=== PATIENT | male | born 1930 | race Caucasian/White ===

== ENCOUNTER → 2021-12-10 | Outpatient (CLI) | payer MEDICARE, OTHER ==
[2021-12-10 13:51] LABS: Partial Thromboplastin Time 26.8 sec (22.0-30.0); Prothrombin Time 10.7 sec (9.0-12.0)
[2021-12-10 18:26] LABS: HCT 39.7 % (39.6-50.0); HGB 13.1 g/dL (13.0-17.0); MCH 32.6 pg (27.0-32.0); MCV 98.8 fL (80.0-97.0); Mean Platelet Volume 10.7 fL (9.5-12.2); NRBC Per 100 WBC 0 /100 WBCS (0.0-0.0); Platelet Count 179 X 10*3/uL (140-440); RBC 4.02 X 10*6/uL (4.40-5.60); RDW 13.2 % (11.5-14.5); WBC 4.63 X 10*3/uL (4.50-10.00)
[2021-12-10 18:41] LABS: African American GFR (CKD) 95.7 (60.0-200.0); Albumin/Globulin Ratio 1.73 (1.60-3.17); Anion Gap 8.3 mmol/L (10.00-18.00); BUN/Creat Ratio 17.01 Ratio (12.00-20.00); Blood Urea Nitrogen 12.3 mg/dL (9.0-27.0); Calcium 9.5 mg/dL (8.7-10.3); Carbon Dioxide 27.4 mmol/L (20.0-27.5); Globulin 2.3 g/dL (1.6-3.3); Non-African American GFR(CKD) 82.6 (60.0-200.0); Potassium 4.4 mmol/L (3.5-5.5); Total Bilirubin 0.4 mg/dL (0.30-1.20); Total Protein 6.4 g/dL (6.2-8.2)
[2021-12-10 21:06] LABS: Appearance,Urine Clear (Clear); Bilirubin,Urine Negative (Negative); Blood,Urine Negative (Negative); Color,Urine Yellow (Yellow); Ketones,Urine Negative (Negative); Nitrite,Urine Negative (Negative); PH, Urine 7.5 (5.0-8.0); Specific Gravity,Urine 1.009 (1.001-1.030)
== END | disposition home or self-care (01) ==
LOC: LABPAT 11:47
PROVIDERS: ATTEND Orthopaedic Surgery
DX: Z01.812 Encounter for preprocedural laboratory examination (principal)
CPT/HCPCS: 80053; 81003; 85027; 85610; 85730; 87070

== ENCOUNTER 2021-12-23 05:59 | Day surgery (SDC) | payer MEDICARE ==
[2021-12-18 11:00] VITALS: BMI 24.9
[~2021-12-23 05:59] MED LIST: ACETAMINOPHEN TAB 500 MG TAB PO PRN; DEXAMETHASONE SOD PHOSPHATE 4 MG/ML 1 ML VIAL IV ONE; GABAPENTIN 300 MG CAP PO PRN; MELOXICAM 7.5 MG TAB PO PRN; MIDAZOLAM 2 MG/2 ML VIAL IV PRN; ONDANSETRON 4 MG/2 ML VIAL IVP ONE; TRANEXAMIC ACID IN NACL,ISO-OS 1,000 MG in SALINE 1 100ML.BAG IVPB PRN
[2021-12-23] MEDS: LACTATED RINGERS 1,000 ML IV SCH (06:08)
[2021-12-23] MEDS ORDERED: fentaNYL (PF) 50 MCG/ML 2 ML AMP ONE (07:20)
[2021-12-23] MEDS ORDERED: TRANEXAMIC ACID IN NACL,ISO-OS 1,000 MG/100 ML BAG ONE (07:20)
[2021-12-23] MEDS ORDERED: ceFAZolin 1,000 MG in SODIUM CHLORIDE 0.9% 1,000 ML IRRIGATION ONE (07:20)
[2021-12-23] MEDS ORDERED: GLYCOPYRROLATE 0.2 MG/ML 2 ML VIAL ONE (07:20)
[2021-12-23] MEDS ORDERED: PROPOFOL 10 MG/ML 20 ML VIAL IV ONE (07:20)
[2021-12-23] MEDS ORDERED: SUCCINYLCHOLINE CHLORIDE 200 MG/10 ML VIAL IV ONE (07:20)
[2021-12-23] MEDS ORDERED: LIDOCAINE 2% INJ 20 MG/ML (2 ML VIAL) ONE (07:20)
[2021-12-23] MEDS ORDERED: NEOSTIGMINE 1 MG/ML 10 ML VIAL ONE (07:20)
[2021-12-23] MEDS ORDERED: ePHEDrine 50 MG/ML 1 ML VIAL ONE (07:20)
[2021-12-23] MEDS ORDERED: ROCURONIUM 10 MG/ML (5 ML VIAL) IV ONE (07:20)
[2021-12-23] MEDS ORDERED: HYDROmorphone (PF) 1 MG/ML ONE (07:20)
[2021-12-23] MEDS ORDERED: ROPIVACAINE 5 MG/ML 30 ML VIAL MISCELLANE ONE ×2 (07:47→08:41)
--- NOTE | 2021-12-23 08:49 | P.OP ---
Date of Procedure: 12/23/21 Preoperative Diagnosis: Severe osteoarthritis left hip Postoperative Diagnosis: Severe osteoarthritis left hip Procedure(s) Performed: Left total hip arthroplasty with a direct anterior approach Implants: [employer] Polarstem standard size 7 collar [employer] R3, 3 hole hemispherical acetabular shell, 56 mm [employer] Reflection 6.5 mm cancellus screw, 20 mm, 25 mm [employer] R3, XLPE 20 acetabular liner [employer] Oxinium femoral head 36 m, +4 All components were press-fit. The articulation is Oxinium on polyethylene. Anesthesia: GETA Surgeon: Saqib Jade Colorman #1: Jess Celestin Estimated Blood Loss (ml): 500 Pathology: other (Femoral head) Condition: stable Disposition: PACU Indications for Procedure: After failure of conservative treatment we discussed the surgical and non surgical treatment options at length. Patient wishes to proceed with a total hip arthroplasty with a direct anterior approach. Complications specific to this procedure were discussed at length, including but not limited to infection, leg length discrepancy, dislocation, nerve injury, and fracture. Covid-19 was also discussed at length with the patient, and they are aware of the current policies and procedures. The patient was given the option of delaying surgery, but they elect to proceed knowing these risks. Patient is aware of all these complications and informed consent was obtained Operative Findings: The operative findings are consistent with severe osteoarthritis of the left hip Description of Procedure: Patient was seen and evaluated in the preoperative area and the consent was reviewed. The operative site was marked with a skin marker. The patient was then brought to the operating room and given preoperative antibiotics intravenously. 1 g of Tranexamic acid was also given intravenously. A general anesthetic was administered by the anesthesia department. The patient was then placed on the [place] table with the bony prominences well-padded. The hip area was then prepped with a ChloraPrep solution and draped in the usual sterile fashion. A universal timeout was then performed, which confirmed the patient's name, surgical site, ALLERGIES, and procedure being performed on the consent. Next the incision site was located at 1 cm distal and 2 cm lateral to the anterior superior iliac spine. The skin and subcutaneous tissues were sharply incised. Incision was carefully dissected down to the fascia overlying the tensor fascia forrest muscle. This fascia was then incised in line with the incision. Care was taken to stay laterally in order to avoid injuring the lateral femoral cutaneous nerve. Next, using blunt finger dissection, the tensor fascia forrest muscle was dissected off its investing fascia. The muscle was then carefully retracted laterally with a cobra retractor over the lateral neck of the femur. Next, the circumflex vessels were identified and cauterized using the AquaMantis device. The anterior hip capsule was then exposed. The capsule was then opened and an inverted T fashion. Cobra retractors were then placed intracapsularly. The retractors were maintained intracapsular throughout the procedure. The proximal femur was then visualized. Fluoroscopic x-rays were then taken in order to evaluate the preoperative leg lengths. A small amount of traction was placed on the leg. The femoral neck was then osteotomized at the appropriate level above the lesser trochanter. A small wedge of bone was then removed from the remaining femoral head. Next, using a corkscrew the femoral head was removed from the acetabulum. On gross visual inspection, the femoral head had complete loss of articular cartilage and multiple periarticular osteophytes. The femoral head was then measured. Attention was then turned to the acetabulum. The acetabulum was exposed and any remaining labrum was excised. Sequential reaming of the acetabulum was performed using fluoroscopic guidance until there was a good bed of bleeding cancellus bone. When the appropriate size was reached, a trial was then placed. The position and fit of the trial was checked with fluoroscopy. The trial was then removed. Then, using fluoroscopic guidance, the final implant was impacted at 20 of anteversion and 40 of abduction, and fully seated in the acetabulum. 2 screws were then placed in the acetabulum. Again fluoroscopy was used to check position of the screws. Next, the liner was then impacted, with a 20 elevated liner located in the anterior superior quadrant. Component locking was confirmed. Attention was then directed to the femur. With the aid of the [place] table, the femur was externally rotated to approximately 130, extended, and adducted under the opposite leg. A side hook was then placed under the proximal femur, and the side hook elevator was used to elevate the proximal femur while releasing the capsule. Retractors were then placed. A capsular release was performed, as well as a release of the conjoined tendon, which afforded excellent visualization of the proximal femur. Next, a box osteotome was used to lateralize the proximal femur. A circus hand was then used to locate the femoral canal. Sequential broaching was then performed with appropriate size which afforded excellent fixation in the proximal femur. A trial was then placed with appropriate head and neck, and the hip was gently reduced with the aid of the [place] table. Fluoroscopy was then used to check position of the components, as well as to ensure equal leg lengths. The hip was then gently dislocated and the trials were then removed. Final implants were then impacted and the hip was again reduced. Final fluoroscopic x-rays confirmed that the components were in anatomic position, as well as equal leg lengths. The hip was also taken through range of motion, and found to be stable. The hip was then copiously irrigated with antibiotic solution with pulsatile lavage. The hip was then irrigated with Irrisept solution. The soft tissues were then injected with a ropivacaine solution. A second dose of 1 g of Tranexamic acid was also given intravenously. The fascia was then closed with 2-0 strata fix suture. The subcutaneous tissue was closed with 3-0 Vicryl. The subcuticular tissue was closed with 3-0 strata fix suture. The skin was then closed with Exofin skin glue. After the glue and dried, and Optifoam silver impregnated dressing was applied. The patient was then transferred to the recovery room in stable condition. The psychiatric nursing assistant BRYAN Warren was required due to the complexity of surgery, and the need for skilled surgical services tech for positioning, draping, exposure, retraction, and closure of the wound.
[2021-12-23] MEDS ORDERED: LACTATED RINGERS 1,000 ML IV ONE (08:52)
[2021-12-23] MEDS ORDERED: NALOXONE 0.4 MG/ML 1 ML VIAL IV PRN (09:17)
[2021-12-23] MEDS ORDERED: MAGNESIUM HYDROXIDE 2,400 MG/10 ML CUP PO PRN (09:17)
[2021-12-23] MEDS ORDERED: HYDROmorphone 0.5 MG/0.5 ML SYRINGE IVP PRN ×3 (09:17)
[2021-12-23] MEDS ORDERED: ONDANSETRON 4 MG/2 ML VIAL IVP PRN (09:17)
[2021-12-23] MEDS: HYDROmorphone 0.5 MG/0.5 ML SYRINGE IVP PRN ×2 (09:20→09:44)
--- NOTE | 2021-12-23 09:51 | XR ---
EXAMINATION TYPE: XR Hip Limited LT DATE OF EXAM: 12/23/2021 CLINICAL HISTORY: Left hip pain and osteoarthritis. TECHNIQUE: Single AP portable view of left hip is obtained immediately postoperatively. COMPARISON: None. FINDINGS: Metallic hardware from left hip arthroplasty is seen and appears satisfactory in alignment and position. There is evidence of recent surgery with subcutaneous gas noted laterally. IMPRESSION: Metallic hardware from left hip arthroplasty is satisfactory in position.
--- NOTE | 2021-12-23 09:55 | FL ---
EXAMINATION TYPE: FL guidance operating room, XR Hip Limited LT DATE OF EXAM: 12/23/2021 CLINICAL HISTORY: Left hip pain and osteoarthritis. TECHNIQUE: Fluoroscopy. Limited intraoperative views left hip. COMPARISON: None. FINDINGS: Fluoroscopic guidance was provided during left hip replacement procedure performed by Dr. Jade. A total of 46 seconds of fluoroscopic time was utilized during the procedure and 3 spot im ages was acquired. Images acquired show advanced degenerative changes with eventual total hip replacement. Metallic hard kumar appears satisfactory in position on frontal projection on intraoperative images obtained. IMPRESSION: As Above.
[2021-12-23] MEDS: traMADol 50 MG TAB PO PRN ×2 (13:42→21:50)
[2021-12-23] MEDS: TOBRA-DEXAMET 0.3-0.1% OPHTH DROPS 2.5 ML BTL RIGHT EYE SCH (17:15)
[2021-12-23] MEDS: SODIUM CHLORIDE 0.9% 1,000 ML IV SCH (17:16)
[2021-12-23] MEDS: ASPIRIN 325 MG TAB PO SCH (21:43)
[2021-12-23] MEDS: SENNOSIDES-DOCUSATE SODIUM 1 EACH TAB PO SCH (21:43)
[2021-12-23] MEDS: PREGABALIN 100 MG CAP PO SCH ×2 (21:43→21:50)
--- NOTE | 2021-12-24 00:45 | P.CONS ---
History of Present Illness - Reason for Consult Consult date: 12/23/21 Medical management - Chief Complaint S/p left total hip arthroplasty - History of Present Illness Patient is a 89-year-old male with a known history of osteoarthritis, GERD, peripheral neuropathy, history of breast cancer and stomach cancer with radiation treatment in 2020 and previous history of smoking was admitted to hospital for elective left total hip arthroplasty. Patient tolerated the p rocedure very well. Currently sitting in the chair. Awake alert and oriented. Postoperatively patient is patient was bradycardic with heart rate in 50s. Patient otherwise denied any complaints of dizziness or lightheadedness no complaints of chest pain or shortness of breath. Afebrile. Pain is well controlled. Blood pressure is 120/55 and heart rate 51 and pulse ox 96% on room air. Review of Systems Constitutional: Patient denies any fever or chills . no Generalized weakness. Abdomen: Patient denied any nausea or vomiting or abd. pain Cardiovascular: Patient denies any chest pain or short of breath no palpitations. Respiratory: patient denied any cough . no sputum production. No shortness of breath Neurologic: Patient denied any numbness or tingling headache. Musculoskeletal: Patient denies any complaints of joint swelling or deformity. Skin: Negative Psychiatric: Negative Endocrine: No heat or cold intolerance. No recent weight gain. Genitourinary: No dysuria or hematuria. All other 14 point ROS negative except the above Past Medical History Past Medical History: Cancer, GERD/Reflux, Osteoarthritis (OA) Additional Past Medical History / Comment(s): peripheral neuropathy (left leg worse), breast cancer & stomach cancer with radiation tx 2020., loss of taste eats small amts frequently, hx silent bleeding ulcer with subtotal gastrectomy at 27 yrs old., constipation, pain left hip. History of Any Multi-Drug Resistant Organisms: None Reported Past Surgical History: Back Surgery, Joint Replacement, Prostate Surgery Additional Past Surgical History / Comment(s): total right hip, laminectomy x4, carpal tunnel marla, subtotal hoffmeister gastrectomy (27yrs old) Past Anesthesia/Blood Transfusion Reactions: No Reported Reaction Past Psychological History: No Psychological Hx Reported Smoking Status: Former smoker Past Alcohol Use History: None Reported Additional Past Alcohol Use History / Comment(s): quit smoking june 1964 (34 years old), smoked 8-10 years up to 1 ppd. Past Drug Use History: None Reported - Past Family History Mother Family Medical History: No Reported History Medications and Allergies Home Medications Medication Instructions Recorded Confirmed Type Acetaminophen/Diphenhydramine 2 tab PO HS 12/18/21 12/23/21 History [Tylenol PM 500-25mg] Anastrozole [Arimidex] 1 mg PO DAILY 12/18/21 12/18/21 History Cyanocobalamin [Vitamin B-12] 500 mcg PO DAILY 12/18/21 12/23/21 History Multivit-Min/FA/Lycopen/Lutein 1 each PO DAILY 12/18/21 12/18/21 History [Centrum Silver Men Tablet] Pantoprazole [Protonix] 40 mg PO DAILY 12/18/21 12/23/21 History Pregabalin [Lyrica] 300 mg PO BID 12/18/21 12/18/21 History Tobra-Dexamet 0.3-0.1% [facility] 1 drops RIGHT EYE DAILY 12/18/21 12/23/21 History [Tobradex Ophth Susp] Allergies Allergy/AdvReac Type Severity Reaction Status Date / Time No Known Allergies Allergy Verified 12/23/21 06:24 Physical Exam Vitals: Vital Signs Temp Pulse Pulse Resp BP BP Pulse Ox 12/23/21 12:44 97.9 F 58 L 17 120/55 96 12/23/21 11:55 51 L 16 118/59 100 12/23/21 11:25 54 L 16 119/55 100 12/23/21 10:55 57 L 16 102/52 100 12/23/21 10:29 54 L 16 103/56 100 12/23/21 09:59 50 L 16 108/72 99 12/23/21 09:44 53 L 16 110/61 100 12/23/21 09:29 52 L 16 108/59 100 12/23/21 09:14 97 F L 77 16 119/56 97 12/23/21 06:22 97.3 F L 77 20 128/76 96 Intake and Output 12/23/21 12/23/21 12/23/21 06:59 14:59 22:59 Intake Total 200 1551 Output Total 500 Balance 200 1051 Intake: IV 200 1551 Output: Estimated Blood Loss 500 Other: Weight 87.9 kg 87.9 kg PHYSICAL EXAMINATION: Patient is lying in the bed comfortably, no acute distress, awake alert and oriented.. HEENT: Normocephalic. Neck is supple. Pupils reactive. Nostrils clear. Oral cavity is moist. Neck reveals no JVD, carotid bruits, or thyromegaly. CHEST EXAMINATION: Trachea is central. Symmetrical expansion. Lung chance clear to auscultation and percussion. CARDIAC: Normal S1, S2 with no gallops. No murmurs ABDOMEN: Soft. Bowel sounds present. Nontender. No organomegaly. No abdominal bruits. Extremities: reveal no edema. No clubbing or cyanosis Neurologically awake, alert, oriented x3 with well-coordinated movements. No focal deficits noted Skin: No rash or skin lesions. Psychiatric: Coperative. Nonsuicidal, Musculoskeletal: No joint swelling or deformity. Normal range of motion. Assessment and Plan Assessment: Left total hip arthroplasty postoperative day 0 GERD History of breast cancer and stomach cancer status postradiation History of bleeding ulcer status post subtotal gastrectomy at 27-year-old Osteoarthritis Prior history of smoking DVT prophylaxis Plan: Patient will be current on pain management, bowel regimen and incentive spirometry. Monitor hemoglobin level. Patient will be continued on anastrozole and Lyrica. Continue with PPI and increase PT OT. We will follow-up closely and further recommendations based on the clinical course. Thank you for your consult
[2021-12-24] MEDS: traMADol 50 MG TAB PO PRN ×3 (04:50→20:08)
[2021-12-24] MEDS: SODIUM CHLORIDE 0.9% 1,000 ML IV SCH ×2 (06:32→17:25)
[2021-12-24] MEDS: LACTATED RINGERS 1,000 ML IV SCH (06:33)
[2021-12-24] MEDS: ASPIRIN 325 MG TAB PO SCH ×2 (07:07→20:01)
[2021-12-24] MEDS: PANTOPRAZOLE 40 MG TABLET PO SCH (07:08)
[2021-12-24] MEDS: MULTIVITAMINS, THERA 1 EACH TAB PO SCH (07:08)
[2021-12-24] MEDS: CYANOCOBALAMIN 500 MCG TAB PO SCH (07:08)
[2021-12-24] MEDS: ANASTROZOLE 1 MG TAB PO SCH (07:08)
[2021-12-24] MEDS: PREGABALIN 100 MG CAP PO SCH (07:08)
[2021-12-24] MEDS: TOBRA-DEXAMET 0.3-0.1% OPHTH DROPS 2.5 ML BTL RIGHT EYE SCH (07:10)
[2021-12-24 10:58] LABS: Basophils # (A) 0.02 X 10*3/uL (0.00-0.10); Basophils % (A) 0.3 %; Eosinophils % (A) 1.4 %; HCT 32.4 % (39.6-50.0); HGB 10.9 g/dL (13.0-17.0); Immature Grans, Automated 0.3 %; Lymphocytes # (A) 0.77 X 10*3/uL (0.90-5.00); Lymphocytes % (A) 10.7 %; MCH 33.1 pg (27.0-32.0); MCHC 33.6 g/dL (32.0-37.0); MCV 98.5 fL (80.0-97.0); Mean Platelet Volume 10.7 fL (9.5-12.2); Monocytes % (A) 13.9 %; NRBC Per 100 WBC 0 /100 WBCS (0.0-0.0); Neutrophils # (A) 5.28 X 10*3/uL (1.80-7.70); Neutrophils % (A) 73.4 %; Platelet Count 181 X 10*3/uL (140-440); RBC 3.29 X 10*6/uL (4.40-5.60); RDW 13.5 % (11.5-14.5); WBC 7.19 X 10*3/uL (4.50-10.00)
--- NOTE | 2021-12-24 11:08 | P.PN ---
Subjective Progress Note Date: 12/24/21 This is an 89-year-old male who is status post left total hip arthroplasty. This is postoperative day #1 and patient is seen and evaluated at bedside with Dr. Saqib Jade. Patient states that he is doing well and he denies any new complaints today. Objective - Vital Signs Vital signs: Vital Signs Temp 98.2 F 12/24/21 08:00 Pulse 83 12/24/21 02:00 Resp 17 12/24/21 08:00 BP 108/58 12/24/21 08:00 Pulse Ox 98 12/24/21 08:00 FiO2 Intake & Output 12/23/21 12/24/21 12/24/21 18:59 06:59 18:59 Intake Total 1551 520 Output Total 500 Balance 1051 520 Weight 87.9 kg Intake: IV 1551 Intake, IV Titration 520 Amount Sodium Chloride 0.9% 1, 520 000 ml @ 65 mls/hr IV . [id number] [facility] Rx#:[id number] Output: Urine 0 Estimated Blood Loss 500 Other: Voiding Method Toilet # Voids 2 - Exam Vital signs are stable. Patient is in no acute distress and is alert and oriented 3. Calf is soft and nontender to palpation. Dressing is clean, dry, and intact. Patient has full foot and ankle motion without pain or difficulty. Sensation intact. Neurovascular status and circulatory status are intact. - Labs CBC & Chem 7: 12/24/21 07:03 Labs: Abnormal Lab Results - Last 24 Hours (Table) 12/24/21 Range/Units 07:03 RBC 3.29 L (4.40-5.60) X 10*6/uL Hgb 10.9 L (13.0-17.0) g/dL Hct 32.4 L (39.6-50.0) % MCV 98.5 H (80.0-97.0) fL MCH 33.1 H (27.0-32.0) pg Lymphocytes # 0.77 L (0.90-5.00) X 10*3/uL Assessment and Plan (1) Osteoarthritis of left hip Current Visit: Yes Status: Acute Code(s): M16.12 - UNILATERAL PRIMARY OSTEOARTHRITIS, LEFT HIP SNOMED Code(s): 517443014590082 (2) S/P total left hip arthroplasty Current Visit: Yes Status: Acute Code(s): Z96.642 - PRESENCE OF LEFT ARTIFICIAL HIP JOINT SNOMED Code(s): 869715357855 Plan: Continue routine postop care and pain control. Continue anticoagulation. Weightbearing as tolerated with a walker. Leave dressing in place for 7 days. Appreciate input from medicine. Anticipate discharge to ECF in the next 24-48 hours.
[2021-12-24 11:22] LABS: African American GFR (CKD) 94.3 (60.0-200.0); Anion Gap 8.5 mmol/L (10.00-18.00); BUN/Creat Ratio 23.9 Ratio (12.00-20.00); Blood Urea Nitrogen 17.9 mg/dL (9.0-27.0); Calcium 9.2 mg/dL (8.7-10.3); Carbon Dioxide 26.1 mmol/L (20.0-27.5); Non-African American GFR(CKD) 81.4 (60.0-200.0); Potassium 4.5 mmol/L (3.5-5.5)
[2021-12-24] MEDS ORDERED: diphenhydrAMINE 25 MG CAP PO PRN (19:44)
[2021-12-24] MEDS ORDERED: PREGABALIN 100 MG CAP PO STA (19:45)
[2021-12-24] MEDS ORDERED: diphenhydrAMINE 25 MG CAP PO SCH (20:00)
[2021-12-24] MEDS ORDERED: ACETAMINOPHEN TAB 500 MG TAB PO SCH ×2 (20:00→21:00)
[2021-12-24] MEDS: SENNOSIDES-DOCUSATE SODIUM 1 EACH TAB PO SCH (20:01)
[2021-12-25 01:57] VITALS: RESP 17
[2021-12-25] MEDS ORDERED: PREGABALIN 100 MG CAP PO SCH ×2 (06:00→18:00)
[2021-12-25 07:10] VITALS: BP 136/76; PULSE 75; TEMP 97.5
[2021-12-25] MEDS: SODIUM CHLORIDE 0.9% 1,000 ML IV SCH (07:10)
[2021-12-25] MEDS: ANASTROZOLE 1 MG TAB PO SCH (07:11)
[2021-12-25] MEDS: MULTIVITAMINS, THERA 1 EACH TAB PO SCH (07:11)
[2021-12-25] MEDS: ASPIRIN 325 MG TAB PO SCH (07:11)
[2021-12-25] MEDS: CYANOCOBALAMIN 500 MCG TAB PO SCH (07:11)
[2021-12-25] MEDS: traMADol 50 MG TAB PO PRN (07:11)
[2021-12-25] MEDS: PANTOPRAZOLE 40 MG TABLET PO SCH (07:11)
[2021-12-25] MEDS: TOBRA-DEXAMET 0.3-0.1% OPHTH DROPS 2.5 ML BTL RIGHT EYE SCH (07:12)
--- NOTE | 2021-12-25 07:29 | P.DS ---
Providers Expected date of discharge: 12/25/21 Attending physician: Saqib Jade Consults: 12/23/21 09:17 Consult Physician Routine Consulting Provider: Jose Ramon Thomson Consult Reason/Comments: medical management Do you want consulting provider notified?: Yes Primary care physician: Stated None - Discharge Diagnosis(es) (1) Osteoarthritis of left hip Current Visit: Yes Status: Acute (2) S/P total left hip arthroplasty Current Visit: Yes Status: Acute Hospital Course: This is an 89-year-old male with known history of degenerative arthritis of the left hip. The patient presents for evaluation. After discussion and consideration patient elects to proceed with total hip arthroplasty with direct anterior approach. The patient is seen preoperatively by primary care physician and cleared for surgery. Patient is admitted to [facility] on 12/23/2021 for total hip arthroplasty with direct anterior approach. The procedure is performed without complication or sequelae. The patient is doing well postoperatively. Labs and vital signs are stable on day of discharge. On day of discharge patient's hip incision is healing well. There is minimal erythema. There is no drainage noted at this time. There is minimal soft tissue swelling to the hip and thigh. Patient has full foot and ankle motion without difficulty or pain. Neurovascular status to the lower extremity is intact. Patient is discharged to inpatient rehab in good condition. Please see med rec for accurate list of home medications. Patient Condition at Discharge: Good Plan - Discharge Summary Discharge Rx Participant: No New Discharge Prescriptions: New traMADol HCl [Ultram] 1 - 2 tab PO Q6H PRN #32 tab PRN Reason: Pain Aspirin 325 mg PO BID #60 tab Sennosides [Senokot] 2 tab PO DAILY PRN #60 tablet PRN Reason: Constipation No Action Multivit-Min/FA/Lycopen/Lutein [Centrum Silver Men Tablet] 1 each PO DAILY Cyanocobalamin [Vitamin B-12] 500 mcg PO DAILY Acetaminophen/Diphenhydramine [Tylenol PM 500-25mg] 2 tab PO HS Pregabalin [Lyrica] 300 mg PO BID Anastrozole [Arimidex] 1 mg PO DAILY Pantoprazole [Protonix] 40 mg PO DAILY Tobra-Dexamet 0.3-0.1% [facility] [Tobradex Ophth Susp] 1 drops RIGHT EYE DAILY Discharge Medication List Acetaminophen/Diphenhydramine [Tylenol PM 500-25mg] 2 tab PO HS 12/18/21 [History] Anastrozole [Arimidex] 1 mg PO DAILY 12/18/21 [History] Cyanocobalamin [Vitamin B-12] 500 mcg PO DAILY 12/18/21 [History] Multivit-Min/FA/Lycopen/Lutein [Centrum Silver Men Tablet] 1 each PO DAILY 12/18/21 [History] Pantoprazole [Protonix] 40 mg PO DAILY 12/18/21 [History] Pregabalin [Lyrica] 300 mg PO BID 12/18/21 [History] Tobra-Dexamet 0.3-0.1% [facility] [Tobradex Ophth Susp] 1 drops RIGHT EYE DAILY 12/18/21 [History] Aspirin 325 mg PO BID #60 tab 12/24/21 [Rx] Sennosides [Senokot] 2 tab PO DAILY PRN #60 tablet 12/24/21 [Rx] traMADol HCl [Ultram] 1 - 2 tab PO Q6H PRN #32 tab 12/24/21 [Rx] Follow up Appointment(s)/Referral(s): Saqib Jade DO [Doctor of Osteopathic Medicine] - 2 Weeks Patient Instructions/Handouts: Anterior Hip Replacement (DC) Discharge Disposition: TRANSFER TO SNF/ECF
== END 2021-12-25 13:15 ==
LOC: OR 05:59 → 4SSUR 12:20 → OR 12-25 13:15
PROVIDERS: ATTEND Orthopaedic Surgery
DX: M16.12 Unilateral primary osteoarthritis, left hip (principal); G62.9 Polyneuropathy, unspecified; Z79.899 Other long term (current) drug therapy; Z98.890 Other specified postprocedural states
CPT/HCPCS: 93005; 97116 ×2; 97110; 97161; 97535 ×2; 97165; 88305; 80048; 85025; 88311; 87635; 73501; 27130; C1776; J0330; J1100; J2710; J0690 ×3; J2405; J3010; S0170 ×2; J1170 ×2; J2795; J2704; J2001; 86850; 86900; 86901

== ENCOUNTER → 2022-04-25 | Outpatient (CLI) | payer MEDICARE, OTHER ==
[2022-04-25 18:51] LABS: Basophils # (A) 0.06 X 10*3/uL (0.00-0.10); Basophils % (A) 0.9 %; Eosinophils # (A) 0.41 X 10*3/uL (0.04-0.35); Eosinophils % (A) 6.2 %; HCT 40.3 % (39.6-50.0); HGB 12.1 g/dL (13.0-17.0); Immature Grans, Automated 0.5 %; Lymphocytes # (A) 0.86 X 10*3/uL (0.90-5.00); Lymphocytes % (A) 12.9 %; MCH 28.1 pg (27.0-32.0); MCV 93.7 fL (80.0-97.0); Monocytes # (A) 0.58 X 10*3/uL (0.20-1.00); Monocytes % (A) 8.7 %; NRBC Per 100 WBC 0 /100 WBCS (0.0-0.0); Neutrophils # (A) 4.72 X 10*3/uL (1.80-7.70); Neutrophils % (A) 70.8 %; Platelet Count 209 X 10*3/uL (140-440); RDW 14.7 % (11.5-14.5); WBC 6.66 X 10*3/uL (4.50-10.00)
== END | disposition home or self-care (01) ==
LOC: LABPAT 11:53
PROVIDERS: ATTEND Surgery
DX: Z01.812 Encounter for preprocedural laboratory examination (principal); K40.90 Unilateral inguinal hernia, without obstruction or gangrene, not specified as recurrent
CPT/HCPCS: 85025